=== PATIENT | male | born 1970 | race Caucasian/White ===

== ENCOUNTER 2018-10-23 17:01 | Emergency (ER) | payer OTHER ==
[2018-10-23 17:08] VITALS: BP 155/75; PULSE 62; TEMP 98.1; BMI 59.1
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
[2018-10-23] MEDS ORDERED: ACETAMINOPHEN 500 MG TABLET (FP) PO ONE (17:42)
[2018-10-23] MEDS ORDERED: ACETAMINOPHEN 500 MG TABLET (FP) ONE (17:43)
== END 2018-10-23 17:49 | disposition home or self-care (01) ==
LOC: JERFT 17:01
CPT/HCPCS: 73030-TC-RT-FY; 99281-25